=== PATIENT | male | born 1940 | race Caucasian/White ===

== ENCOUNTER 2016-12-20 00:19 | Emergency (ER) | payer OTHER ==
[~2016-12-20] VITALS: Ht 188 cm; Wt 136.0 kg
[~2016-12-20 00:19] MED LIST: AMITRIPTYLINE H25 MG PO; AMOXICILLIN500 MG PO; ASPIRIN EC PO; ASPIRIN81 M1 PO; AUGMENTIN875 MG PO; BACTRIM,SEPT1 TABLET PO; CARDIZEM CD240 MG PO; CELEXA40 MG PO; CENTRUM SILVER1 EAC3 PO; ELIQUIS5 MG PO; FERROUS SULFAT325 MG PO; FINASTERIDE5 MG PO; FISH OIL CONC1 EACH PO; FISH OIL SOFTG1 EACH PO; FISH OIL300 MG PO; FORTAMET1000 M1 PO; GABAPENTIN100 MG PO; GABAPENTIN300 MG PO; GLIPIZIDE5 MG PO; HUMALOG100 UNIT/2 SC; IRON325 MG PO; LANTUS 3 M100 UNITS1 SC; LANTUS SQ; LASIX20 MG PO; LASIX40 MG PO; LESCOL XL80 MG PO; LEVAQUIN750 MG PO; LEVOTHYROXINE112 MCG PO; LIPITOR80 MG PO; METFORMIN HCL1000 MG PO; METOPROLOL SUCC50 MG PO; METOPROLOL TART50 MG PO; MORPHINE SULFAT15 M1 PO; NEURONTIN300 MG PO; NIASPAN,SLO-N1000 MG PO; PLAVIX75 MG PO; PRAMIPEXOLE DI0.5 MG PO; PROTONIX40 MG PO; TIROSINT112 MCG PO; TRAMADOL HCL50 MG PO; TYLENOL ARTHRI650 M2 PO; TYLENOL ARTHRI650 MG PO; TYLENOL EXTRA500 MG PO; ZOLOFT50 MG PO
[2016-12-20 00:24] VITALS: BP 145/66
[2016-12-20] MEDS ORDERED: ULTRAM50 MG PO (02:00)
== END 2016-12-20 02:20 | disposition home or self-care (01) ==
LOC: EME 00:19
DX: S80.02XA Contusion of left knee, initial encounter (principal); W18.30XA Fall on same level, unspecified, initial encounter; Z96.652 Presence of left artificial knee joint; Z88.6 Allergy status to analgesic agent; Z88.1 Allergy status to other antibiotic agents
CPT/HCPCS: 73564; 99281; 99283